=== PATIENT | female | born 1985 | race Caucasian/White ===

== ENCOUNTER 2022-11-01 09:20 | Day surgery (SDC) | payer BC, SELFPAY ==
[2022-11-01] VITALS (12 sets, daily range): BP systolic 115–139; BP diastolic 75–93; PULSE 55–88; RESP 16; TEMP 36.6–36.8; O2SAT 99–100; BMI 28.3
[2022-11-01] MEDS: OXYMETAZOLINE 0.05% NASAL SPRAY 2 SPRAY NOSTRIL-B (09:38)
[2022-11-01 09:40] LABS: Ur HCG Qualitative* Negative (Negative)
[2022-11-01] MEDS: LACTATED RINGERS 1000 ML 1,000 ML 100 ML IV (09:55)
[2022-11-01] MEDS: SODIUM CHLORIDE 0.9 % (FLUSH) 10 ML SYRINGE IVF (09:55)
--- NOTE | 2022-11-01 11:01 | W.ANESCHARGE ---
Anesthesia Charges Start Date/Time Anesthesia Start Date: 11/01/22 Anesthesia Start Time: 11:01 Stop Date/Time Anesthesia Stop Date: 11/01/22 Anesthesia Stop Time: 11:43
[2022-11-01] MEDS: AYR SALINE NASAL GEL 1 APPLIC NOSTRIL-B (11:12)
[2022-11-01] MEDS: MUPIROCIN 1 GM PACKET 1 APPLIC TOPICAL (11:12)
[2022-11-01] MEDS: BUPIVACAINE 0.5 %/EPI 1:200K 30 ML INJECTION (11:12)
[2022-11-01] MEDS: COCAINE HCL 4 % 4 ML SOLUTION NOSTRIL-B (11:12)
--- NOTE | 2022-11-01 11:35 | P.ENTPROC_ITS ---
Procedure Note Date of procedure: 11/01/22 Procedure: Preoperative diagnosis nasal obstruction, nasal headache, deviated septum, inferior turbinate hypertrophy. Postoperative diagnosis same Procedure nasal septoplasty, submucous partial resection inferior turbinates and right middle turbinate Under general endotracheal anesthesia patient was prepped and draped usual fashion the nose injected and decongested. A right hemitransfixion incision was made left anterior and posterior tunnels were created. A vertical incision was made through the cartilage and a right posterior tunnel created. The posterior deflected portions of septal bone and cartilage were removed by cutting above and below the turbinate scissors and removed with the Dmitri forceps. Two large pieces were trimmed and returned to the posterior intraseptal space. The septum was now midline. The right middle turbinate was incised anteriorly with a 15 blade a tunnel created with a Jenny dissector. The kirstin bone was then infractured with a [place] forceps to narrow it half. A stab incision was made in the anterior head of the right inferior turbinate a tunnel created with a Jenny dissector. The the turbinate was then outfractured. A conservative anterior submucous resection was performed the Coblation Wand was used to cauterize intramurally at the anterior head and inferior 10%. The hemitransfixion was closed with 2 4 chromic sutures silastic stents were secured with 3-0 nylon and a Merocel pack was placed on each side at the middle meatal level. Patient procedure well was taken recovery in satisfactory condition blood loss less than 25 mL. Surgeon: Marshall Villalobos MD
--- NOTE | 2022-11-01 11:43 | W.ANESCHARGE ---
Anesthesia Charges Start Date/Time Anesthesia Start Date: 11/01/22 Anesthesia Start Time: 11:01 Stop Date/Time Anesthesia Stop Date: 11/01/22 Anesthesia Stop Time: 11:43
== END 2022-11-01 13:15 | disposition home or self-care (01) ==
LOC: OR 09:21
PROVIDERS: PCP Family Medicine; Visit Provider Otolaryngology
PROC: (CPT 30520; principal; 2022-11-01 10:30)
DX: J34.2 Deviated nasal septum (principal); J34.3 Hypertrophy of nasal turbinates; J34.89 Other specified disorders of nose and nasal sinuses; R51.9 Headache, unspecified
CPT/HCPCS: 30520; 30140; 00160; 81025; A9270; J0330; J1100; J2405; J2704; J3010; J3490; J7120